=== PATIENT | male | born 1960 | race Hispanic/Latino ===

== ENCOUNTER 2017-09-23 06:06 | Day surgery (SDC) | payer OTHER ==
[2017-09-23] MEDS ORDERED: NACL BACTERIOSTATIC INFILTRATI ONE (06:59)
--- NOTE | 2017-09-23 07:12 | Anesthesia Day of Surgery ---
Anesthesia Day of Surgery - Day of Surgery Patient Examined: Yes Patient H&P Reviewed: Yes Patient is NPO: Yes
--- NOTE | 2017-09-23 07:12 | Anesthesia Consultation ---
Anesthesia Consult and Med Hx - Airway Anesthetic Teeth Evaluation: Good ROM Head & Neck: Adequate Mental/Hyoid Distance: Adequate Mallampati Class: Class II Intubation Access Assessment: Good - Pulmonary Exam CTA: Yes - Cardiac Exam Cardiac Exam: RRR - Pre-Operative Health Status ASA Pre-Surgery Classification: ASA1, ASA2 Proposed Anesthetic Plan: General - Pulmonary Hx Smoking: No Hx Sleep Apnea: Yes (DX SLEEP APNEA WITH CPAP USE.) - Cardiovascular System Hx Hypertension: No - Other Systems Hx Cancer: No
[2017-09-23] MEDS ORDERED: DIPRIVAN 10 MG/ML IV ONE (07:31)
[2017-09-23] MEDS ORDERED: XYLOCAINE MPF 2% ONE (07:32)
[2017-09-23] MEDS ORDERED: NACL 0.9% 1000 ML 1,000 ML IV SCH (08:00)
[2017-09-23] MEDS ORDERED: ZOFRAN IV PRN (08:00)
[2017-09-23] MEDS ORDERED: DILAUDID IV PRN (08:00)
[2017-09-23] MEDS ORDERED: ANCEF/STERILE WATER 2 GM/20 ML 2 GM/20 ML SYRINGE IV ONE (08:43)
[2017-09-23] MEDS ORDERED: ANCEF/STERILE WATER 2 GM/20 ML IV NR (08:46)
[2017-09-23] MEDS ORDERED: DECADRON ONE (09:06)
[2017-09-23] MEDS ORDERED: ZOFRAN ONE (09:06)
[2017-09-23] MEDS ORDERED: ePHEDrine SULFATE ONE (09:24)
--- NOTE | 2017-09-23 09:24 | Post Operative Note ---
Pre-op diagnosis: left upj stone Post-op diagnosis: same Findings: sig pr op pain Procedure: l ureteral eswl cysto j stent Anesthesia: VERONICA Surgeon: RADHA IBARRA Estimated blood loss: none Pathology: none Condition: stable Disposition: PACU
--- NOTE | 2017-09-23 09:25 | Discharge Summary ---
Short Stay Discharge Plan Activity: other (no straining ) Weight Bearing Status: Full Weight Bearing Diet: regular, low fat, low salt Special Instructions: other (inc fluids ) Durable Medical Equipment Needed Upon Discharge: other (has j stent ) Follow up with: DR LEXIE [Other] - 7 Days DANITA VALENCIA MD [Staff Physician] - 7 Days
[2017-09-23] MEDS ORDERED: WATER FOR IRRIG STERILE IR ONE (09:30)
--- NOTE | 2017-09-23 14:01 | Operative Report ---
PREOPERATIVE DIAGNOSIS: Left upper ureteral stones. POSTOPERATIVE DIAGNOSES: Left upper ureteral stones with severe impaction. PROCEDURE: Left ESWL in situ followed by left double-J stent. SURGEON: Ki Sheehan M.D. ANESTHESIA: General. FINDINGS: The gentleman who I met in the preoperative area. He had left flank pain. No hematuria. He has a stone at least 7 mm, looks bigger, in the upper ureter and maybe one above it as well. He now presents for treatment. All the risks and implications discussed. I told him we may place the stent as well. DESCRIPTION OF PROCEDURE: The patient brought to the operating room and placed on the operating table. Following induction of anesthesia, placed over the F2 focal point without difficulty. Stone was well seen in the upper ureter. Shocks were begun at 1 kV increased to maximum of 5 kV. Total 2500 shocks were given. At the conclusion, there was still significant stone burden. After we finished lithotripsy, placed in the lithotomy position in the lithotripsy suite and retrograde showed this to be severe obstruction. We were able to with manipulation push the stone up and able to get a wire in the upper pole collecting system. A 5-Marshallese double J coiled in the upper pole in the bladder. The patient tolerated the procedure well. Before doing that, I spoke to his who agreed based upon what I saw and this was turned out to be a good move because we were able to push the stone up and relieve the obstruction. The patient tolerated the procedure well and brought to recovery in stable condition. JOB# [id number] YVONNE/JASON
--- NOTE | 2017-09-23 15:04 | Post Anesthesia Evaluation ---
- Post Anesthesia Evaluation Patient Participated: Yes Airway Patent: Yes Stable Respiratory Function: Yes Nausea/Vomiting: No Temp > 96.8F: Yes Pain Manageable: Yes Adequeate Hydration: Yes Anesthesia Complications: No Block Receding Appropriately: Not Applicable
[2017-09-23 16:21] VITALS: BP 138/80
== END 2017-09-23 11:08 | disposition home or self-care (01) ==
LOC: OR 06:06
PROVIDERS: ATTEND Urology
DX: N20.1 Calculus of ureter (principal); E66.9 Obesity, unspecified; Z98.890 Other specified postprocedural states; E78.00 Pure hypercholesterolemia, unspecified; Z88.8 Allergy status to other drugs, medicaments and biological substances
CPT/HCPCS: A4217; C1758; C2617; J0690; J1100; J2405; J2704; J7030

== ENCOUNTER 2017-10-07 09:01 | Day surgery (SDC) | payer OTHER ==
[2017-10-07] MEDS ORDERED: NACL BACTERIOSTATIC INFILTRATI ONE (09:40)
--- NOTE | 2017-10-07 10:14 | Anesthesia Day of Surgery ---
Anesthesia Day of Surgery - Day of Surgery Patient Examined: Yes Patient H&P Reviewed: Yes Patient is NPO: Yes
--- NOTE | 2017-10-07 10:14 | Anesthesia Consultation ---
Anesthesia Consult and Med Hx Date of service: 10/07/17 - Airway Anesthetic Teeth Evaluation: Crowns ROM Head & Neck: Adequate Mental/Hyoid Distance: Adequate Mallampati Class: Class II Intubation Access Assessment: Good - Pulmonary Exam CTA: Yes - Cardiac Exam Cardiac Exam: RRR - Pre-Operative Health Status ASA Pre-Surgery Classification: ASA3 Proposed Anesthetic Plan: General - Pulmonary Hx Smoking: Yes (CIGARS- STOPPED X 15 YRS) Hx Sleep Apnea: Yes (DX SLEEP APNEA WITH CPAP USE.) - Cardiovascular System Hx Hypertension: No - Other Systems Hx Cancer: No Hx Obesity: Yes - Additional Comments Anesthesia Medical History Comments: Informed consent obtained
[2017-10-07] MEDS ORDERED: DILAUDID IV PRN (10:15)
[2017-10-07] MEDS ORDERED: DIPRIVAN 10 MG/ML IV ONE (10:53)
[2017-10-07] MEDS ORDERED: DILAUDID ONE (10:58)
[2017-10-07] MEDS ORDERED: VERSED IV NR (11:00)
[2017-10-07] MEDS ORDERED: ANCEF/STERILE WATER 2 GM/20 ML IV NR (11:00)
[2017-10-07] MEDS ORDERED: NACL 0.9% 1000 ML 1,000 ML IV SCH (11:00)
--- NOTE | 2017-10-07 12:34 | Short Stay Summary ---
Short Stay Documentation Date of service: 10/07/17 - History H&P: obtained from office - Allergies and Medications Current Medications: Allergies Sulfa (Sulfonamide Antibiotics) Allergy (Verified 09/22/17 10:34) Rash Home Medications Medication Instructions Recorded Confirmed Last Taken Type Aspirin [Lo-Dose Aspirin EC] 81 mg PO DAILY 09/22/17 10/07/17 09/16/17 History Ondansetron [Zofran TAB] 4 mg PO Q8HR PRN 09/22/17 10/07/17 09/23/17 History Oxycodone HCl/Acetaminophen 1 each PO Q6HR PRN 09/22/17 10/07/17 10/07/17 03:00 History [Percocet 10/325 mg] 1/2 TAB Simvastatin [Zocor TAB] 40 mg PO QHS 09/22/17 10/07/17 10/07/17 History Naproxen 1 tab PO DAILY 09/23/17 10/07/17 09/23/17 History Tamsulosin [Flomax] 0.4 mg PO QDAY 09/30/17 10/07/17 10/06/17 History Nitrofurantoin [place]/M-Cryst 100 mg PO BID 10/07/17 10/07/17 10/06/17 19:30 History [Macrobid CAP] Active Medications Hydromorphone HCl (Dilaudid) 0.5 mg IV Q10MIN PRN PRN Reason: Pain , Severe (7-10) Stop: 10/07/17 13:00 Sodium Chloride (Nacl 0.9% 1000 Ml) 1,000 mls @ 100 mls/hr IV DIRECT CHARLES Last Admin: 10/07/17 10:24 Dose: 100 mls/hr Midazolam HCl (Versed) 2 mg IV PREOP NR Stop: 10/07/17 23:59 Last Admin: 10/07/17 10:25 Dose: 1 mg - Brief post op/procedure progress note Date of procedure: 10/07/17 Pre-op diagnosis: left renal stone (s/p stent) Post-op diagnosis: same Procedure: ESWL - staged Anesthesia: TYRELA Surgeon: NAYELI FOUNTAIN Estimated blood loss: none Condition: stable - Hospital course Hospital course: ultram,percocet 10,post op info on chart - Disposition Condition at discharge: Stable Disposition: DC-01 TO HOME OR SELFCARE Short Stay Discharge Plan Follow up with: JEIMY OWEN MD [Primary Care Provider] - 7 Days
--- NOTE | 2017-10-07 12:49 | Operative Report ---
PREOPERATIVE DIAGNOSIS: Left renal stone 10 mm. POSTOPERATIVE DIAGNOSIS: Left renal stone 10 mm, status post left stent placement. PROCEDURE: Extracorporal shock wave lithotripsy. SURGEON: Gelacio Bedolla MD ANESTHESIA: General. ESTIMATED BLOOD LOSS: Minimal. FLUIDS: Crystalloid. COMPLICATIONS: No complications. INDICATIONS: This patient is a 57-year-old gentleman seen by Dr. Eng in the office, underwent recently for pain and attempted extraction. He presents now for lithotripsy. Risks, benefits, and complications were explained to the patient and his . Written information was given. DESCRIPTION OF PROCEDURE: The patient was taken to the operative suite, placed in a supine position. After adequate general anesthesia, stone was localized in 2 planes using fluoroscopy. Extracorporal shock wave lithotripsy was administered with maximum kV of 5 and 2500 shocks. Renal pause after 200 shocks was performed. The patient tolerated the procedure well, was extubated, taken to recovery room. He will go home on Ultram and Percocet and follow up in the office. JOB# [id number] [facility]
[2017-10-07] MEDS ORDERED: XYLOCAINE MPF 2% ONE (13:00)
--- NOTE | 2017-10-07 14:28 | Post Anesthesia Evaluation ---
- Post Anesthesia Evaluation Patient Participated: Yes Airway Patent: Yes Stable Respiratory Function: Yes Nausea/Vomiting: No Temp > 96.8F: Yes Pain Manageable: Yes Adequeate Hydration: Yes Anesthesia Complications: No
[2017-10-07 16:29] VITALS: BP 114/73
== END 2017-10-07 14:50 | disposition home or self-care (01) ==
LOC: OR 09:01
PROVIDERS: ATTEND Urology
DX: N20.0 Calculus of kidney (principal); E66.9 Obesity, unspecified; G47.30 Sleep apnea, unspecified; F17.210 Nicotine dependence, cigarettes, uncomplicated; Z99.89 Dependence on other enabling machines and devices; Z88.2 Allergy status to sulfonamides; Z68.31 Body mass index [BMI] 31.0-31.9, adult
CPT/HCPCS: 50590; J0690; J1170; J2250; J2704; J7030